=== PATIENT | male | born 1980 | race Caucasian/White ===

== ENCOUNTER 2022-03-11 11:16 | Outpatient (CLI) | payer OTHER, SELFPAY ==
[2022-03-11 19:00] LABS: Hemoglobin A1C 6.2 % (<5.7)
[2022-03-11 20:26] LABS: Vitamin D 25 Hydroxy 24.5 ng/mL
== END 2022-03-11 11:17 | disposition home or self-care (01) ==
LOC: ANHASCLAB 11:18
PROVIDERS: PCP Family Medicine; Visit Provider Family Medicine
DX: E55.9 Vitamin D deficiency, unspecified (principal); E11.9 Type 2 diabetes mellitus without complications
CPT/HCPCS: 36415; 82306; 83036

== ENCOUNTER 2022-11-03 15:10 | Outpatient (CLI) | payer OTHER, SELFPAY ==
[2022-11-03 19:37] LABS: Alanine Aminotransferase 34 U/L (6-50); Albumin Level 4.2 g/dL (3.5-5.1); Alkaline Phosphatase 30 U/L (38-126); Anion Gap 7 mmol/L (8-16); Aspartate Amino Transferase 30 U/L (17-59); Bilirubin,Total 0.4 mg/dL (0.2-1.3); Blood Urea Nitrogen 13 mg/dL (9-20); Carbon Dioxide 33 mmol/L (22-30); Chloride 99 mmol/L (98-107); Cholesterol 167 mg/dL (0-200); Estimated Glomerular Filt Rate > 60; Glucose 108 mg/dL (65-110); HDL Direct 46 mg/dL; Potassium 4.4 mmol/L (3.4-5.0); Sodium 139 mmol/L (137-145); Triglycerides 100 mg/dL (<150); Vitamin D 25 Hydroxy 36.5 ng/mL
[2022-11-03 19:48] LABS: LDL Cholesterol Direct 88 mg/dL
[2022-11-03 20:33] LABS: Basophils Percent Auto 0.2 % (0.2-1.2); Eosinophils Absolute Auto 0.1 K/mm3 (0-0.3); Eosinophils Percent Auto 0.9 % (0-4.4); Hematocrit 43.5 % (42.0-52.0); Hemoglobin 13.6 g/dL (14.0-18.0); Immature Granulocyte Absolute 0.05 K/mm3 (0.00-0.031); Immature Granulocyte Percent A 0.4 % (0-0.5); Lymphocytes Absolute Auto 1.99 K/mm3 (0.9-3.2); Lymphocytes Percent Auto 15.9 % (18.3-44.2); Mean Corpuscular HGB Conc 31.3 g/dl (32-36); Mean Corpuscular Hemoglobin 28.6 pg (26-34); Mean Corpuscular Volume 91.4 fl (80-100); Mean Platelet Volume 11.2 fl (7.4-10.4); Monocytes Absolute Auto 0.9 K/mm3 (0.1-0.6); Monocytes Percent Auto 7.1 % (2.6-8.5); Neutrophils Absolute Auto 9.4 K/mm3 (1.3-6.7); Neutrophils Percent Auto 75.5 % (45.5-73.1); Platelet Count Result 287 k/mm3 (150-375); Red Blood Count 4.76 M/mm3 (4.6-6.20); Red Cell Distribution Width 14.6 % (11.5-14.5); White Blood Count 12.5 K/mm3 (4.5-10.0)
== END 2022-11-03 15:11 | disposition home or self-care (01) ==
LOC: ANHGOSHLAB 15:11
PROVIDERS: PCP Family Medicine; Visit Provider Family Medicine
DX: Z00.00 Encounter for general adult medical examination without abnormal findings (principal); I10 Essential (primary) hypertension; E53.8 Deficiency of other specified B group vitamins; R73.03 Prediabetes; E55.9 Vitamin D deficiency, unspecified; E78.5 Hyperlipidemia, unspecified
CPT/HCPCS: 36415; 80053; 80061; 82306; 82607; 83036; 84443; 85025

== ENCOUNTER 2023-06-12 08:04 | Outpatient (CLI) | payer OTHER, SELFPAY ==
--- NOTE | ~2023-06-12 | MR_ITS ---
EXAMINATION: MR ankle LT wo con DATE: 06/12/2023 09:02 INDICATION: Left ankle pain and swelling. TECHNIQUE: Magnetic resonance imaging (MRI) of the left ankle was performed without intravenous contr ast. Sequences included sagittal PD-weighted FS FSE, sagittal PD-weighted FSE, coronal PD-weighted FS FSE, coronal PD-weighted FSE, axial PD-weighted FS FSE, and axial PD-weighted FSE. COMPARISON: None. FINDINGS: Medial ankle ligaments: The superficial and deep components of the deltoid ligament are normal. Lateral ankle ligaments: The anterior and posterior talofibular ligaments, calcaneofibular ligament, and posterior tibiofibula r ligaments are normal. The anterior tibiofibular ligament is intact. Tendons: The medial and anterior ankle tendons are normal. The peroneal tendons and Achilles tendon are normal . Plantar fascia: There is thickening and increased signal involving the central band of plantar fascia, consistent wit h fasciitis. There is an enthesophyte at the calcaneus attachment. Bones/other: The talar dome is normal. There is edema-like marrow signal intensity involving talus, calcaneus, and navicular. There is a skin marker medial to posterior talus. Fluid: There are effusions of the ankle joint and subtalar joint and talonavicular joint. There is edema abo ut the ankle. There is mild pre-Achilles bursitis. IMPRESSION: 1. Edema-like marrow signal intensity involving talus, calcaneus, and navicular, likely stress reacti on. 2. Effusions of the ankle joint, subtalar joint, and talonavicular joint. 3. Plantar fasciitis. Reviewed, dictated and finalized at location E. IMPRESSION: 1. Edema-like marrow signal intensity involving talus, calcaneus, and navicular , likely stress reaction. 2. Effusions of the ankle joint, subtalar joint, and talonavicular joint. 3. Plantar fasciitis.
== END 2023-06-12 08:05 ==
LOC: MICIMG 08:05
PROVIDERS: PCP Family Medicine; Visit Provider Podiatrist Foot & Ankle Surgery
DX: M25.572 Pain in left ankle and joints of left foot (principal)
CPT/HCPCS: 73721

== ENCOUNTER 2024-05-08 13:39 | Outpatient (CLI) | payer OTHER, SELFPAY ==
--- OUTSIDE RECORDS SUMMARY | 2024-05-08 16:15 | XMS_ITS | Clinical Summary ---
Author Organization [facility] Address [facility] [place] [address] Care Team Providers Care Sustainability Coordinator Name Role Phone Radha Bates MD Primary Care Provider Allergies No known active allergies Medications lisinopril-hydr oCHLOROthiazide (ZESTORETIC) 20-12.5 mg per tablet Take 1 tablet by mouth daily 0 Active sertraline (ZOLOFT) 50 mg tablet Take 1 tablet (50 mg total) by mouth daily 0 Active atorvastatin (LIPITOR) 40 mg tablet Take 1 tablet (40 mg total) by mouth nightly 2 Active cholecalciferol (VITAMIN D-3) 50,000 unit capsule Take 1 capsule (50,000 Units total) by mouth once a week 2 Active sildenafiL (VIAGRA) 100 mg tablet TAKE 1 TABLET BY MOUTH ONCE DAILY NEEDED FOR SEXUAL ACTIVITY. TAKE 30 MINUTES TO 4 HOURS BEOFRE ACTIVITY. 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 Basal cell carcinoma (BCC) of face 09/15/2016 Family History Medical History Relation Name Comments Skin cancer Mother Family history of skin cancer - (Added by TW Conv) Skin cancer Mother's Brother Family hist ory of skin cancer - (Added by TW Conv) Skin cancer Mother's Sister Family histo ry of skin cancer - (Added by TW Conv) Relation Name Status Comments Mother Mother's Brother Mother's Sister Social History Tobacco Use Types Packs/Day Years Used Date Smoking Tobacco: Never Smokeless Tobacco: Never Tobacco Cessation:Counseling Given: Not Answered Personal Safety Answer Date Recorded Getting School Help Needed Not on file 03/24 Sex and Gender Information Value Date Recorded Sex Assigned at Not on file Legal Sex Male 2:13 AM SHOE CLERK Gender Identity Not on file Sexual Orientation Not on file Obstetrics History Last Filed Vital Signs Vital Sign Reading Time Taken Comments Blood Pressure 140/82 08/18/2022 3:15 PM CDT Pulse 97 08/18/2022 3:15 PM CDT Temperature 36.8 C (98.3 F) 08/18/2022 3:15 PM CDT Respiratory Rate 18 08/18/2022 3:15 PM CDT Oxygen Saturation 98% 08/18/2022 3:15 PM CDT Inhaled Oxygen Concentration - - Weight 195 kg (430 lb) 08/18/2022 3:15 PM CDT Height 180.3 cm (5' 11 ) 08/18/2022 3:15 PM CDT Body Mass Index 59.97 08/18/2022 3:15 PM CDT Plan of Treatment Health Maintenance Due Date Last Done Comments Depression Screening 1980 Hepatitis C Screening 1980 DTaP/Tdap/Td Vaccine (1 - Tdap) 1991 Varicella Vaccines (1 of 2 - 13+ 2-dose series) 1993 Hepatitis B Screening 1998 Regular Well Visit/Exam 18-64 1998 Covid-19 Vaccine ( - 2023-2 5 season) 2023 08/04/2020, 07/14/2020 Influenza Vaccine (#1) 2023 HPV Vaccines Aged Out No longer eligi ble based on patient's age to complete this topic Pneumococcal vaccine <65 Aged Out No longer eligible based on patient's age to complete this topic Insurance [facility] HMO/PPO Address: [place] [id number] [place] [address] [facility] [facility] HMO/PPO Address: [place] [address] Care Teams Sustainability Coordinator Relationship Specialty Start Date End Date Radha Bates MD PCP - General Family Practice 03/07/22
--- OUTSIDE RECORDS SUMMARY | 2024-05-08 16:15 | XMS_ITS | Referral Summary ---
Author Organization [facility] Address [facility] [place] [address] Care Team Providers Care Workforce Consultant Name Role Phone Radha Bates MD Primary [...] Basal cell carcinoma (BCC) of face 09/15/2016 Social History Tobacco Use Types Packs/Day Years Used Date Smoking Tobacco: Never Smokeless Tobacco: Never Tobacco Cessation:Counseling Given: Not Answered Personal Safety Answer Date Recorded Getting School Help Needed Not on file 03/24 Sex and Gender Information Value Date Recorded Sex Assigned at Not on file Legal Sex Male 2:13 AM SCRIPT GIRL Gender Identity Not on file Sexual Orientation Not on file Last Filed Vital Signs Vital Sign Reading [...] 08/18/2022 3:15 PM CDT Plan of Treatment Not on [place] [id number] [facility] [phone] [facility] CHOICE PLUS Care Teams Workforce Consultant Relationship Specialty Start Date End Date Radha Bates MD PCP - General Family Practice 03/07/22
--- OUTSIDE RECORDS SUMMARY | 2024-05-08 16:15 | XMS_ITS | Clinical Summary ---
Author Organization [facility] Address [address] [place] [address] Care Team Providers Care Cook Seafood Name Role Phone Sohail Gates MD Primary Care Provider [phone] Source Comments [facility],non-owned Affiliates and Associated Physician Practices is amultiple site organization consisting of ambulatory clinics and hospital sitesin [place], [place], [place] and [place]. This disclosure is being madepursuant to the Care Everywhere program and may not contain all information available regarding this patient. Last updated 17.[facility] Allergies No known active allergies Medications * Be aware that medications may not be up to date on this document. Alwaysverify current medications with the patient. Medication Sig Dispensed Refills Start Date End Date Status indapamide (LOZOL) 2.5 MG tablet Take 2.5 mg by mouth once daily Active indapamide (LOZOL) 2.5 MG tablet 12 05/21/2016 Active Social History Tobacco Use Types Packs/Day Years Used Date Smoking Tobacco: Never Assessed Sex and Gender Information Value Date Recorded Sex Assigned at Not on file Gender Identity Not on file Sexual Orientation Not on file Last Filed Vital Signs Vital Sign Reading Time Taken Comments Blood Pressure 122/74 03/19/2017 11:47 AM BIOANALYST Pulse 52 03/19/2017 11:47 AM BIOANALYST Temperature 36.6 C (97.9 F) 03/19/2017 11:47 AM BIOANALYST Respiratory Rate - - Oxygen Saturation 98% 03/19/2017 11:47 AM BIOANALYST Inhaled Oxygen Concentration - - Weight 149.7 kg (330 lb) 03/19/2017 11:47 AM BIOANALYST Height 182.9 cm (6') 03/19/2017 11:47 AM BIOANALYST Body Mass Index 44.76 03/19/2017 11:47 AM BIOANALYST Plan of Treatment Health Maintenance Due Date Last Done Comments LIPID TESTING 1980 HIV SCREENING 1995 HEPATITIS C SCREENING 04/27/1998 DTAP/TDAP/TD VACCINES (1 - Tdap) 1999 HEPATITIS B VACCINE (1 of 3 - 19+ 3-dose series) 1999 COVID-19 VACCINE (1 - 2023-2 5 season) 2023 INFLUENZA VACCINE (#1) 2023 DEPRESSION SCREENING 03/22/2024 ZOSTER VACCINE (1 of 2) 2030 HIB VACCINE Aged Out No longer eligi ble based on patient's age to complete this topic HPV VACCINE Aged Out No longer eligi ble based on patient's age to complete this topic MENINGOCOCCAL (Group B) VACCINE Aged Out No longer eligible based on patient's age to complete this topic MENINGOCOCCAL VACCINE Aged Out No aylin bobby eligible based on patient's age to complete this topic PNEUMOCOCCAL VACCINE Aged Out No long er eligible based on patient's age to complete this topic Care Teams Cook Seafood Relationship Specialty Start Date End Date Sohail Gates MD [address] [place] [address] PCP - General Family Medicine 03/19/17
--- OUTSIDE RECORDS SUMMARY | 2024-05-08 16:15 | XMS_ITS | Referral Summary ---
Author Organization [facility] [employer] Address [address] [place] [address] Care Team Providers Care Weight Reduction Specialist Name Role Phone Sohail Gates MD Primary Care Provider Source Comments [facility] [employer],non-owned Affiliates and Associated Physician Practices is amultiple site organization consisting of ambulatory clinics and hospital sitesin [place], [place], [place] and [place]. This disclosure is being madepursuant to the Care Everywhere program and may not contain all information available regarding this patient. Last updated 17.[facility] Allergies No known active allergies Medications * [...] Comments Blood Pressure 122/74 03/19/2017 11:47 AM CIGARETTE ROLLER Pulse 52 03/19/2017 11:47 AM CIGARETTE ROLLER Temperature 36.6 C (97.9 F) 03/19/2017 11:47 AM CIGARETTE ROLLER Respiratory Rate - - Oxygen Saturation 98% 03/19/2017 11:47 AM CIGARETTE ROLLER Inhaled Oxygen Concentration - - Weight 149.7 kg (330 lb) 03/19/2017 11:47 AM CIGARETTE ROLLER Height 182.9 cm (6') 03/19/2017 11:47 AM CIGARETTE ROLLER Body Mass Index 44.76 03/19/2017 11:47 AM CIGARETTE ROLLER Plan of Treatment Not on file Care Teams Weight Reduction Specialist Relationship Specialty Start Date End Date Sohail Gates MD [address] [place] [id number] PCP - General Family Medicine 03/19/17
--- OUTSIDE RECORDS SUMMARY | 2024-05-08 16:15 | XMS_ITS | Clinical Summary ---
Author Organization [facility] Address [address] [facility] [place] [address] Phone Care Team Providers Care Process Development Manager Name Role Phone Molina Gates MD Primary Care Provider [phone] Dequan Laughlin DPM Unavailable [phone] Allergies No known active allergies Medications indapamide (LOZOL) 2.5 MG Tablet Take 2.5 mg by mouth daily. Active aluminum chloride (DRYSOL) 20 % SolutionIndicati ons:Hyperhidrosi s of soles Apply nightly. Use as directed. 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 Social History Tobacco Use Types Packs/Day Years Used Date Smoking Tobacco: Never Smokeless Tobacco: Never Tobacco Cessation:Counseling Given: Yes Alcohol Use Standard Drinks/Week Comments Yes 0 (1 standard drink = 0.6 oz pur e alcohol) occasionally Sex and Gender Information Value Date Recorded Sex Assigned at Not on file Legal Sex Male 10:14 PM CDT Gender Identity Not on file Sexual Orientation Not on file Last Filed Vital Signs Vital Sign Reading Time Taken Comments Blood Pressure 128/84 06/22/2016 10:44 AM CDT Pulse 57 06/22/2016 10:44 AM CDT Temperature 36.5 C (97.7 F) 06/22/2016 10:44 AM CDT Respiratory Rate 18 06/22/2016 10:44 AM CDT Oxygen Saturation 96% 06/22/2016 10:44 AM CDT Inhaled Oxygen Concentration - - Weight 158.3 kg (349 lb) 06/22/2016 10:44 AM CDT Height 182.9 cm (6') 06/22/2016 10:44 AM CDT Body Mass Index 47.33 06/22/2016 10:44 AM CDT Plan of Treatment Health Maintenance Due Date Last Done Comments Hepatitis C Virus (HCV) Screening 1980 TdaP Immunization 1980 Hepatitis B Immunization (1 of 3 - 19+ 3-dose series) 1999 Influenza Immunization (#1) 2023 SARS-COV-2 Immunization ( - season) 2023 Respiratory Syncytial Virus (RSV) Immunization (Adult) (1 - 1-dose 75+ series) 2055 Meningococcal Immunization (ACWY) Aged Out No longer eligible based on patient's age to complete this topic Pneumococcal Immunization Combined Aged Out No longer eligible based on patient's age to complete this topic Rotavirus Immunization Aged Out No lo nger eligible based on patient's age to complete this topic Care Teams Process Development Manager Relationship Specialty Start Date End Date Molina Gates MD [address] [place] [address] PCP - General Family Medicine 06/22/16 Dequan Laughlin DPM [address] [place] [address] Consulting Physician Podiatry 06/22/16
--- OUTSIDE RECORDS SUMMARY | 2024-05-08 16:15 | XMS_ITS | Patient Health Summary ---
Author Organization [facility] [employer] Address [address] [place] [address] Care Team Providers Care Supervisor Yard Name Role Phone Sohail Gates MD Primary Care Provider [phone] Note from [facility],non-owned Affiliates and Associated Physician Practices is amultiple site organization consisting of ambulatory clinics and hospital sitesin [place], [place], [place] and [place]. This disclosure is being madepursuant to the Care Everywhere program and may not contain all information available regarding this patient. Last updated 17.[facility] Allergies No known active allergies Medications * Be aware that medications may not be up to date on this document. Alwaysverify current medications with the patient. * indapamide (LOZOL) 2.5 MG tablet Take 2.5 mg by mouth once daily * indapamide (LOZOL) 2.5 MG tablet(Started 05/21/2016) 12 refills left Social History Tobacco Use Types Packs/Day Years Used Date Smoking Tobacco: Never Assessed Sex and Gender Information Value Date Recorded Sex Assigned at Not on file Gender Identity Not on file Sexual Orientation Not on file Last Filed Vital Signs Vital Sign Reading Time Taken Comments Blood Pressure 122/74 03/19/2017 11:47 AM GAS TORCH SOLDERER Pulse 52 03/19/2017 11:47 AM GAS TORCH SOLDERER Temperature 36.6 C (97.9 F) 03/19/2017 11:47 AM GAS TORCH SOLDERER Respiratory Rate - - Oxygen Saturation 98% 03/19/2017 11:47 AM GAS TORCH SOLDERER Inhaled Oxygen Concentration - - Weight 149.7 kg (330 lb) 03/19/2017 11:47 AM GAS TORCH SOLDERER Height 182.9 cm (6') 03/19/2017 11:47 AM GAS TORCH SOLDERER Body Mass Index 44.76 03/19/2017 11:47 AM GAS TORCH SOLDERER Procedures * STREP A SCREEN - POINT OF CARE (AMB) STL(Performed 03/19/2017) Performed for Acute nasopharyngitis (common cold) * DERMATOPATHOLOGY(Performed 06/11/2016) Results * STREP A SCREEN - POINT OF CARE (AMB) STL (03/19/2017) Strep A Rapid POCT Negative Negative Strep A Internal Control Present Lot # [id number] Expiration Date [id number] Throat ENTIRE THROAT (SURFACE REGION OF NECK) / Unknown 03/19/2017 Erica L Long FINANCIAL PLANNING ASSISTANT-OUTPATIENT INTERVIEWING CLERK LAB - POINT O F CARE ORDERABLES * PATHOLOGY TISSUE FOR DERMATOLOGY (06/11/2016 12:00 AM CDT) Result CASE: [id number] PATIENT: RUDY KOLB PATHOLOGIC DIAGNOSIS: Left orthodox: BASAL CELL CARCINOMA, INFILTRATIVE PATTERN CLINICAL DATA: R/O BCC. GROSS DESCRIPTION: Received is one formalin filled container labeled with the patients name and designated left orthodox. The specimen consists of a shave biopsy measuring [id number]. Jar 0. MICROSCOPIC DESCRIPTION: Within the dermis there are nodular aggregates of basaloid cells associated with fibromyxoid stroma and epithelial-stro mal clefts. At the advancing margin of the neoplasm, there are smaller angulated nests that infiltrate the dermis. Electronically signed out by Ursula Poon M.D., PhD. 06/15/2016 10:23:30AM [facility] Comment: Performed at: Dermatopathology Laboratory [facility] - Department of Dermatology [address] [place] [address], 5th [place] [address] Phone number: [phone] FAX: [phone] Skin (tissue) specimen (specimen) 06/11/2016 06/12/2016 Narrative [facility] - 06/16/2016 8:20 AM CDT Rayshawn Matthews MD Preferred Lab:->Derm-Path Specimen A: Type->Shave Site->L orthodox History->pink pearly papule Impression->r/o BCC Check Margins:->N/A Prior Biopsy->N/A Rayshawn Matthews MD LAB - PATHOLOGY/CYTO LOGY ORDERABLES [facility] [address] [facility] [place] [address], [facility] [phone] Care Teams Supervisor Yard Relationship Specialty Start Date End Date Sohail Gates MD [address] [place] [address] PCP - General Family Medicine 03/19/17
[2024-05-08 19:05] LABS: Alanine Aminotransferase 35 U/L (6-50); Alkaline Phosphatase 35 U/L (38-126); Anion Gap 7 mmol/L (4-12); Aspartate Amino Transferase 36 U/L (17-59); Bilirubin,Total 0.6 mg/dL (0.2-1.3); Blood Urea Nitrogen 13 mg/dL (9-20); Calcium 9.2 mg/dL (8.4-10.2); Carbon Dioxide 33 mmol/L (22-30); Chloride 97 mmol/L (98-107); Cholesterol 238 mg/dL (0-200); Estimated Glomerular Filt Rate > 60; Glucose 104 mg/dL (65-110); HDL Direct 48 mg/dL; Potassium 4.1 mmol/L (3.4-5.0); Sodium 137 mmol/L (137-145); Triglycerides 201 mg/dL (<150)
[2024-05-08 19:16] LABS: Basophils Percent Auto 0.3 % (0.2-1.2); Eosinophils Absolute Auto 0.1 K/mm3 (0-0.3); Eosinophils Percent Auto 1.3 % (0-4.4); Hematocrit 43.6 % (42.0-52.0); Immature Granulocyte Absolute 0.04 K/mm3 (0.00-0.031); Immature Granulocyte Percent A 0.4 % (0-0.5); LDL Cholesterol Direct 153 mg/dL; Lymphocytes Absolute Auto 1.89 K/mm3 (0.9-3.2); Lymphocytes Percent Auto 20.7 % (18.3-44.2); Mean Corpuscular HGB Conc 32.1 g/dl (32-36); Mean Corpuscular Hemoglobin 28.6 pg (26-34); Mean Corpuscular Volume 89.2 fl (80-100); Mean Platelet Volume 10.4 fl (7.4-10.4); Monocytes Absolute Auto 0.7 K/mm3 (0.1-0.6); Monocytes Percent Auto 7.9 % (2.6-8.5); Neutrophils Absolute Auto 6.3 K/mm3 (1.3-6.7); Neutrophils Percent Auto 69.4 % (45.5-73.1); Platelet Count Result 246 k/mm3 (150-375); Red Blood Count 4.89 M/mm3 (4.6-6.20); Red Cell Distribution Width 13.7 % (11.5-14.5); White Blood Count 9.1 K/mm3 (4.5-10.0)
== END 2024-05-08 13:40 | disposition home or self-care (01) ==
LOC: ANHGOSHLAB 13:40
PROVIDERS: PCP Family Medicine; Visit Provider Family Medicine
DX: Z00.00 Encounter for general adult medical examination without abnormal findings (principal); E78.5 Hyperlipidemia, unspecified; R73.03 Prediabetes; I10 Essential (primary) hypertension; E55.9 Vitamin D deficiency, unspecified; R53.83 Other fatigue; R68.82 Decreased libido; E53.8 Deficiency of other specified B group vitamins
CPT/HCPCS: 36415; 80053; 80061; 82306; 82607; 83036; 84402; 84403; 84443; 85025

== ENCOUNTER 2024-06-12 12:30 | Outpatient (CLI) | payer OTHER, SELFPAY ==
--- OUTSIDE RECORDS SUMMARY | 2024-06-12 14:10 | XMS_ITS | Clinical Summary ---
Author Organization [facility] [employer] Address [address] [facility] [place] [address] Care Team Providers Care Rigging Loft Repairer Name Role Phone Sohail Gates MD Primary Care Provider Source Comments [facility] [employer],non-owned Affiliates and Associated Physician Practices is amultiple site organization consisting of ambulatory clinics and hospital sitesin [place], [place], [place] and [place]. This disclosure is being madepursuant to the Care Everywhere program and may not contain all information available regarding this patient. Last updated 17.[facility] [employer] Allergies No known active allergies Medications * [...] Comments Blood Pressure 122/74 03/19/2017 11:47 AM LIGHT EQUIPMENT OPERATOR Pulse 52 03/19/2017 11:47 AM LIGHT EQUIPMENT OPERATOR Temperature 36.6 C (97.9 F) 03/19/2017 11:47 AM LIGHT EQUIPMENT OPERATOR Respiratory Rate - - Oxygen Saturation 98% 03/19/2017 11:47 AM LIGHT EQUIPMENT OPERATOR Inhaled Oxygen Concentration - - Weight 149.7 kg (330 lb) 03/19/2017 11:47 AM LIGHT EQUIPMENT OPERATOR Height 182.9 cm (6') 03/19/2017 11:47 AM LIGHT EQUIPMENT OPERATOR Body Mass Index 44.76 03/19/2017 11:47 AM LIGHT EQUIPMENT OPERATOR Plan of Treatment Health Maintenance Due Date [...] to complete this topic MENINGOCOCCAL (Group B) VACC INE SHARED DECISION-MAKING Aged Out No longer eligibl e based on patient's age to complete this topic MENINGOCOCCAL GROUPS A/C/Y/W VACCINE Aged Out No longer eligible b ased on patient's age to complete this topic PNEUMOCOCCAL VACCINE Aged Out No long er eligible based on patient's age to complete this topic Care Teams Rigging Loft Repairer Relationship Specialty Start Date End Date Sohail Gates MD [address] [place] [address] PCP - General Family Medicine 03/19/17
--- OUTSIDE RECORDS SUMMARY | 2024-06-12 14:10 | XMS_ITS | Clinical Summary ---
Author Organization [facility] Address [address] [facility] [place] [address] Phone Care Team Providers Care Background Check Coordinator Name Role Phone Molina Gates MD Primary Care Provider [phone] Dequan Laughlin DPM Unavailable [phone] Allergies No known active allergies Medications [...] age to complete this topic Care Teams Background Check Coordinator Relationship Specialty Start Date End Date Molina Gates MD [address] [place] [address] PCP - General Family Medicine 06/22/16 Dequan Laughlin DPM [address] [place] [address] [address] Consulting Physician Podiatry 06/22/16
[2024-06-12 16:34] LABS: Cholesterol 188 mg/dL (0-200); HDL Direct 49 mg/dL; Triglycerides 139 mg/dL (<150)
[2024-06-12 16:48] LABS: LDL Cholesterol Direct 90 mg/dL
[2024-06-13 07:13] LABS: FSH 40.1 mIU/mL (1.4-12.8); LH 21.2 mIU/mL (1.5-9.3)
== END 2024-06-12 12:31 | disposition home or self-care (01) ==
PROVIDERS: PCP Family Medicine; Visit Provider Family Medicine
DX: E29.1 Testicular hypofunction (principal)
CPT/HCPCS: 36415; 80061; 83001; 83002; 84402; 84403

== ENCOUNTER 2024-11-02 10:55 | Outpatient (CLI) | payer OTHER, SELFPAY ==
--- OUTSIDE RECORDS SUMMARY | 2024-11-02 11:10 | XMS_ITS | Clinical Summary ---
Author Organization [facility] [employer] Address [address] [facility] [place] [address] Care Team Providers Care Manufacturing Plant Technician Name Role Phone Sohail Gates MD Primary Care Provider Source Comments [employer] [facility],non-owned Affiliates and Associated Physician Practices is amultiple site organization consisting of ambulatory clinics and hospital sitesin [place], [place], [place] and [place]. This disclosure is being madepursuant to the Care Everywhere program and may not contain all information available regarding this patient. Last updated 17.[employer] Allergies No known active allergies Medications * Be aware that medications may not be up to date on this document. Alwaysverify current medications with the patient. indapamide (LOZOL) 2.5 MG tablet Take 2.5 mg by mouth once daily Active indapamide (LOZOL) 2.5 MG tablet 12 05/21/2016 Active Social History Tobacco Use Types Packs/Day Years Used Date Smoking Tobacco: Never Assessed Sex and Gender Information Value Date Recorded Sex Assigned at Not on file Legal Sex Male 5:42 PM ACID CRANE OPERATOR Gender Identity Not on file Sexual Orientation Not on file Last Filed Vital Signs Vital Sign Reading Time Taken Comments Blood Pressure 122/74 03/19/2017 11:47 AM ACID CRANE OPERATOR Pulse 52 03/19/2017 11:47 AM ACID CRANE OPERATOR Temperature 36.6 C (97.9 F) 03/19/2017 11:47 AM ACID CRANE OPERATOR Respiratory Rate - - Oxygen Saturation 98% 03/19/2017 11:47 AM ACID CRANE OPERATOR Inhaled Oxygen Concentration - - Weight 149.7 kg (330 lb) 03/19/2017 11:47 AM ACID CRANE OPERATOR Height 182.9 cm (6') 03/19/2017 11:47 AM ACID CRANE OPERATOR Body Mass Index 44.76 03/19/2017 11:47 AM ACID CRANE OPERATOR Plan of Treatment Health Maintenance Due Date Last Done Comments LIPID TESTING 1980 HIV SCREENING 1995 HEPATITIS C SCREENING 04/27/1998 DTAP/TDAP/TD VACCINES (1 - Tdap) 1999 HEPATITIS B VACCINE (1 of 3 - 19+ 3-dose series) 1999 HPV VACCINE (1 - 3-dose SCDM series) 2007 COVID-19 VACCINE (1 - 2023-2 5 season) 2023 DEPRESSION SCREENING 03/22/2024 INFLUENZA VACCINE (#1) 2024 ZOSTER VACCINE (1 of 2) 2030 HIB [...] patient's age to complete [place] [id number] [facility] Care Teams Manufacturing Plant Technician Relationship Specialty Start Date End Date Sohail Gates MD [address] [place] [address] PCP - General Family Medicine 03/19/17
--- OUTSIDE RECORDS SUMMARY | 2024-11-02 11:10 | XMS_ITS | Clinical Summary ---
Author Organization [facility] Address [address] [facility] [place] [address] Phone Care Team Providers Care Track Rider Name Role Phone Molina Gates MD Primary Care Provider [phone] Dequan Laughlin DPM Unavailable [phone] Allergies No known active allergies Medications [...] of 3 - 19+ 3-dose series) 1999 Human Papillomavirus (HPV) Immunization (1 - 3-dose SCDM series) 2007 SARS-COV-2 Immunization ( - 2023- season) 2023 Influenza Immunization (#1) 2024 Respiratory Syncytial Virus (RSV) Immunization (Adult) (1 - 1-dose 75+ series) 2055 Meningococcal Immunization (ACWY) Aged Out No longer eligible based on patient's age to complete this topic Pneumococcal Immunization Combined Aged Out No longer eligible based on patient's age to complete this topic Rotavirus Immunization Aged Out No lo nger eligible based on patient's age to complete this topic Care Teams Track Rider Relationship Specialty Start Date End Date Molina Gates MD [address] [place] [address] PCP - General Family Medicine 06/22/16 Dequan Laughlin DPM [address] [place] [address] Consulting Physician Podiatry 06/22/16
--- OUTSIDE RECORDS SUMMARY | 2024-11-02 11:10 | XMS_ITS | Clinical Summary ---
Author Organization [facility] Address [facility] [place] [address] Care Team Providers Care Director Building Name Role Phone Radha Bates MD Primary [...] on file Legal Sex Male 2:13 AM [employer] Gender Identity Not on file Sexual Orientation [...] 3:15 PM CDT Height 180.3 cm (5' 11) 08/18/2022 3:15 PM CDT Body Mass Index 59.97 08/18/2022 3:15 PM CDT Plan of Treatment Health Maintenance Due Date Last Done Comments Depression Screening 1980 Hepatitis C Screening 1980 DTaP/Tdap/Td Vaccine (1 - Tdap) 1991 Varicella Vaccines (1 of 2 - 13+ 2-dose series) 1993 Hepatitis B Screening 1998 Regular Well Visit/Exam 18-64 1998 HPV Vaccines (1 - 3-dose SCD M series) 2007 Covid-19 Vaccine (3 - 2023-2 5 season) 2023 08/04/2020, 07/14/2020 Influenza Vaccine (#1) 2024 Pneumococcal vaccine <65 Aged Out No longer eligible based on patient's age to complete this topic Insurance [facility] [employer] [id number] [place] [address] CHOICE PLUS Care Teams Director Building Relationship Specialty Start Date End Date Radha Baets MD PCP - General Family Practice 03/07/22
[2024-11-02 14:34] LABS: Hemoglobin A1C 6.2 % (<5.7)
[2024-11-02 14:44] LABS: Alanine Aminotransferase 27 U/L (6-50); Albumin Level 4.0 g/dL (3.5-5.1); Alkaline Phosphatase 29 U/L (38-126); Anion Gap 7 mmol/L (4-12); Aspartate Amino Transferase 52 U/L (17-59); Bilirubin,Total 0.4 mg/dL (0.2-1.3); Blood Urea Nitrogen 12 mg/dL (9-20); Calcium 9.3 mg/dL (8.4-10.2); Carbon Dioxide 29 mmol/L (22-30); Chloride 99 mmol/L (98-107); Estimated Glomerular Filt Rate > 60; Glucose 109 mg/dL (65-110); Potassium 4.5 mmol/L (3.4-5.0); Sodium 135 mmol/L (137-145); Total Protein 7.8 g/dL (6.3-8.2)
[2024-11-02 15:16] LABS: Prostate Specific Antigen 1.3 ng/mL (< OR = 4.0)
== END 2024-11-02 10:56 | disposition home or self-care (01) ==
LOC: ANHGOSHLAB 10:55
PROVIDERS: PCP Family Medicine; Visit Provider Family Medicine
DX: R73.03 Prediabetes (principal); I10 Essential (primary) hypertension; Z12.5 Encounter for screening for malignant neoplasm of prostate; Z51.81 Encounter for therapeutic drug level monitoring; Z79.890 Hormone replacement therapy
CPT/HCPCS: 36415; 80053; 83036; 84153; G0103